=== PATIENT | male | born 1960 | race Caucasian/White ===

== ENCOUNTER 2018-07-18 12:44 | Emergency (ER) | payer BC, OTHER ==
[~2018-07-18 12:44] MED LIST: ISOVUE-370 76%-LOCM 1 ML ONE
[2018-07-18 13:11] LABS: #Eosinphils 0.1 thou/uL (0.0-0.7); #Monocytes 0.5 thou/uL (0.11-0.59); #Neutrophils 4.4 thou/uL (1.40-6.50); %Basophils 0.4 % (0.0-1.0); %Eosinophils 1.9 % (0.0-10.0); %Lymphocytes 28.5 % (21.0-51.0); %Monocytes 7.1 % (0.0-10.0); %Neutrophils 62.2 % (42.0-75.0); Hemoglobin 16.3 g/dL (14.0-18.0); Mean Corpuscular HGB CONC 33.8 g/dL (32.0-36.0); Mean Corpuscular Hemoglobin 32.4 pg (27.0-31.0); Mean Corpuscular Volume 95.9 fL (78.0-98.0); Mean Platelet Volume 7.1 fL (7.4-10.4); Platelet Count 199 thou/uL (130-400); RBC Distribution Width 12.2 % (11.5-14.5); Red Blood Cell (RBC) Count 5.01 mill/uL (4.70-6.10); White Blood Cell (WBC) Count 7.1 thou/uL (4.8-10.8)
[2018-07-18 13:22] LABS: PTT 27.5 SEC (22.9-36.1)
[2018-07-18 13:24] LABS: INR-International Normal Ratio 0.9; Prothrombin Time 11.7 SEC (12.0-14.7)
[2018-07-18 13:26] LABS: ALT (SGPT) 21 U/L (8-55); AST (SGOT) 28 U/L (5-34); Albumin 4.8 g/dL (3.5-5.0); Alkaline Phosphatase 63 U/L (40-150); Anion Gap 12 mmol/L (10-20); BUN (Urea Nitrogen) 14 mg/dL (8.4-25.7); Bilirubin, Total 0.7 mg/dL (0.2-1.2); Calc. Creatinine Clearance 0 mL/min (70-130); Calcium 9.9 mg/dL (7.8-10.44); Carbon Dioxide 23 mmol/L (22-29); Chloride 106 mmol/L (98-107); Estimated GFR-MDRD 65; Globulin 2.9 g/dL (2.4-3.5); Glucose 183 mg/dL (70-105); Potassium 4.2 mmol/L (3.5-5.1); Protein, Total 7.7 g/dL (6.0-8.3); Sodium 137 mmol/L (136-145)
[2018-07-18 13:30] LABS: CKMB 2.4 ng/mL (0-6.6); Troponin I Less than 0.010 ng/mL (< 0.028)
[2018-07-18] MEDS ORDERED: Ketorolac Tromethamine 30 MG/ML VIAL ONE (14:05)
[2018-07-18] MEDS ORDERED: Acetaminophen 500 MG TAB ONE (14:05)
--- NOTE | 2018-07-18 14:36 | CT ---
CT OF THE BRAIN WITHOUT CONTRAST: Date: 07/18/18 INDICATION: Level II stroke with headache, blurry vision, and numbness to left side of face and left arm. COMPARISON: None. FINDINGS: Septum pellucidum and third ventricle are midline. There is subtle hypodensity within the periventric ular and subcortical white matter likely indicative of mild chronic small vessel white matter ischemi c change. No definite acute infarct, hemorrhage, or hydrocephalus is present. Mastoid air cells and p aranasal sinuses are clear. Skull is intact. IMPRESSION: 1. No acute intracranial abnormality. 2. Mild chronic small vessel white matter ischemic change. Findings called to Dr. Macdonald at 1307 hours on 07/18/18. CODE CR. POS: [facility]
--- NOTE | 2018-07-18 15:10 | CT ---
CT ANGIOGRAM OF THE HEAD WITH CONTRAST CT ANGIOGRAM OF THE NECK WITH CONTRAST: Date: 07/18/18 Time: 1314 hours HISTORY: 57-year-old male with acute stroke symptoms: hypesthesia (numbness) of left face and left arm, blurr y vision, and headache. Dr. Mendosa verbally gave this report to Dr. Macdonald at 1343 hours on 07/18/18. TECHNIQUE: IV injection of 100 mL [id number]. Arterial bolus chasing technique scan from aortopulmonic window to vertex of head. Coronal and sagittal 3D MIP reconstructions. FINDINGS: A1 and A2 segments of bilateral anterior cerebral arteries, M1 segments and their proximal branches o f the bilateral middle cerebral arteries, bilateral carotid siphons, bilateral intracranial vertebral s, basilar, P1 and P2 segments of bilateral posterior cerebral arteries, demonstrate no high grade fo roel, short segment acquired stenosis. There is a patent anterior communicating artery and a left post erior communicating artery. The left posterior cerebral artery P1 segment is hypoplastic, development ally. There is contrast opacification of the bilateral AICA's and bilateral PICA's. Bilateral cervical internal carotids, bilateral common carotids, brachiocephalic, right subclavian, a nd bilateral cervical vertebral, arteries, demonstrate no short segment focal acquired stenosis. Left vertebral artery is dominant. Minimal calcified plaque at right carotid bulb. Little or no plaque at left carotid bulb. Mid and distal portions of left subclavian artery are obscured by streak artifact from contrast bolus in the adjacent left subclavian vein. Proximal left subclavian artery is within normal limits in caliber. There are anterior metallic plate and crews, and interbody cage, at C5-6. IMPRESSION: 1. No high grade acquired stenosis of major arteries of head and neck identified. 2. Status post anterior cervical diskectomy and fusion at C5-6. CODE CR. POS: [facility]
== END 2018-07-18 15:07 | disposition home or self-care (01) ==
LOC: ERS 12:44
DX: G43.809 Other migraine, not intractable, without status migrainosus (principal); E11.9 Type 2 diabetes mellitus without complications
CPT/HCPCS: 36415; 36416; 70450; 70496; 70498; 80053; 82553; 84484; 85025; 85610; 85730; 86850; 86900; 86901; 93005; 96374; J1885

== ENCOUNTER 2020-10-03 09:16 | Inpatient (IN) | payer BC, OTHER ==
[2020-10-03 09:48] LABS: #Lymphocytes 0.6 thou/uL (1.20-3.40); #Monocytes 0.3 thou/uL (0.11-0.59); #Neutrophils 4.1 thou/uL (1.40-6.50); %Basophils 0.4 % (0.0-1.0); %Eosinophils 0.3 % (0.0-10.0); %Lymphocytes 11.6 % (21.0-51.0); %Monocytes 5.8 % (0.0-10.0); %Neutrophils 81.9 % (42.0-75.0); Hemoglobin 16.9 g/dL (14.0-18.0); Mean Corpuscular HGB CONC 33.6 g/dL (32.0-36.0); Mean Corpuscular Hemoglobin 33.2 pg (27.0-31.0); Mean Corpuscular Volume 98.7 fL (78.0-98.0); Platelet Count 206 thou/uL (130-400); Red Blood Cell (RBC) Count 5.09 mill/uL (4.70-6.10)
[2020-10-03 10:10] LABS: ALT (SGPT) 12 U/L (8-55); AST (SGOT) 44 U/L (5-34); Albumin 4.1 g/dL (3.5-5.0); Alkaline Phosphatase 61 U/L (40-110); Anion Gap 19 mmol/L (10-20); BUN (Urea Nitrogen) 12 mg/dL (8.4-25.7); Bilirubin, Total 0.6 mg/dL (0.2-1.2); Calc. Creatinine Clearance 0 mL/min (70-130); Calcium 8.7 mg/dL (7.8-10.44); Carbon Dioxide 21 mmol/L (22-29); Chloride 102 mmol/L (98-107); Globulin 4.1 g/dL (2.4-3.5); Glucose 40 mg/dL (70-105); Potassium 4.7 mmol/L (3.5-5.1); Protein, Total 8.2 g/dL (6.0-8.3); Sodium 137 mmol/L (136-145)
[2020-10-03] MEDS ORDERED: Cefepime 2 GM VIAL ONE (10:28)
[2020-10-03] MEDS ORDERED: Iopamidol 370 76% 100 ML VIAL ONE (11:21)
--- NOTE | 2020-10-03 11:32 | CT ---
CTA Angio Chest W WO Con 10/03/2020 11:12 AM Indication: Dyspnea with cough myalgias and headache; history of negative Covid testing Technique: Multiple CTA images were obtained of the thorax with IV contrast. 3-D rendering: MIP jatin nstructed images were created and reviewed. Comparison: No relevant prior studies available. Findings: Pulmonary arteries: No central or segmental pulmonary embolus is evident. Heart and Aorta: There is mild cardiomegaly and mild pericardial effusion. Mediastinum:There is a 1.3 cm prevascular lymph node. There is a subcarinal lymph node measuring 2.1 cm. There are mildly prominent bilateral hilar lymph nodes. One of the largest measures 1 cm. Lungs:There is airspace consolidation seen within all lobes of the lung. Pleural space: There are small bilateral pleural effusions Upper Abdomen: There is a 1.8 cm cyst within the right hepatic dome. Osseous Structures: There is scattered degenerative and osteoarthritic change present. Soft tissues:No abnormality. Other findings:None. Impression: 1. No central or segmental pulmonary embolus. 2. Multifocal pneumonia. Mildly prominent hilar and mediastinal lymph nodes are suspicious for reacti ve lymphadenopathy. 3. Mild cardiomegaly with mild pericardial effusion and mild bilateral pleural effusions. Recommend c orrelation for component of CHF. 4. Right hepatic dome cyst.
[2020-10-03 11:53] LABS: SARS-CoV-2 NAA Rapid Test Not Detected (NotDetected)
[2020-10-03] MEDS ORDERED: Acetaminophen 500 MG TAB ONE (13:48)
[2020-10-03] MEDS ORDERED: Dextrose 5% in Water 1,000 ML IV PRN (15:27)
[2020-10-03] MEDS ORDERED: Ondansetron PF 4 MG/2 ML Vial IVP PRN (15:27)
[2020-10-03] MEDS ORDERED: Guaifenesin DM 100-10/5 ML UDCUP PO PRN (15:27)
[2020-10-03] MEDS ORDERED: Ondansetron ODT 4 MG TAB PO PRN (15:27)
[2020-10-03] MEDS ORDERED: hydrALAZINE 20 MG/ML VIAL SLOW IVP PRN (15:27)
[2020-10-03] MEDS ORDERED: Dextrose 50% Abboject 50 ML SYRINGE SLOW IVP PRN (15:27)
[2020-10-03] MEDS ORDERED: Sodium Chloride 0.9% 1,000 ML IV SCH (15:27)
[2020-10-03] MEDS ORDERED: Ketorolac Tromethamine 30 MG/ML VIAL IVP SCH (15:30)
[2020-10-03 15:34] VITALS: BMI 33.7
[2020-10-03] MEDS ORDERED: Dextrose 50% Abboject 50 ML SYRINGE ONE (15:47)
--- NOTE | 2020-10-03 17:05 | HP ---
PRIMARY CARE PROVIDER: Adam Marshall MD CHIEF COMPLAINT: Cough, shortness of breath, and body aches. HISTORY OF PRESENT ILLNESS: This is a 59-year-old male, who presents to [facility] Emergency Department complaining of approximately 13-day history of undulating shortness of breath, cough, myalgias, fever, and headache. The patient apparently was placed on Zithromax and amoxicillin by his primary care provider, continuing the antibiotics currently with progression of his symptoms. The patient apparently presented to his primary care provider's office in followup and noted to be hypoxic approximately 89% on room air. The patient states he was tested for COVID x2 and negative. The patient denied any exposure history of travel. Family members with similar symptoms of chronic pneumonia or history of lung disease. The patient denies tobacco use or chemical exposure. The patient does admit to fever up to 102 degrees Fahrenheit with associated cough, shortness of breath, diarrhea, and headache. In the emergency room, the patient underwent general evaluation including chest imaging showing multifocal pneumonia suspicious for COVID-19. The patient underwent a COVID screening in the emergency room and noted to be negative. The patient received vancomycin, Levaquin, and cefepime in the emergency room in addition to intravenous normal saline x1 L. The patient was also placed on oxygen supplementation of 2 L/minute by nasal cannula with O2 saturations in the mid 90% range. PAST MEDICAL HISTORY: 1. Diabetes mellitus, type 2. 2. Migraine headaches. 3. Hyperlipidemia. PAST SURGICAL HISTORY: Status post back surgery. CURRENT MEDICATIONS: 1. Metformin 1000 mg p.o. b.i.d. 2. Simvastatin 5 mg p.o. daily. 3. Lantus U-100 of 50 units subcutaneously b.i.d. ALLERGIES: NO KNOWN DRUG ALLERGIES. FAMILY HISTORY: Positive for diabetes mellitus. SOCIAL HISTORY: Resides in [place], [place]. . Works for [employer]. No alcohol, tobacco, or illicit drug use. REVIEW OF SYSTEMS: CONSTITUTIONAL: Negative for weight loss or gain, ability to conduct usual activities. SKIN: Negative for rash, itching. EYES: Negative for double vision, pain. ENT/MOUTH: Negative for nose bleeding, neck stiffness, pain, tenderness. CARDIOVASCULAR: Negative for palpitations, dyspnea on exertion, orthopnea. RESPIRATORY: Negative for shortness of breath, wheezing, cough, hemoptysis, fever or night sweats. GASTROINTESTINAL: Negative for poor appetite, abdominal pain, heartburn, nausea, vomiting, constipation, or diarrhea. GENITOURINARY: Negative for urgency, frequency, dysuria, nocturia. MUSCULOSKELETAL: Negative for pain, swelling. NEUROLOGIC/PSYCHIATRIC: Negative for anxiety, depression. ALLERGY/IMMUNOLOGIC: Negative for skin rash, bleeding tendency. Otherwise negative except as stated per HPI. PHYSICAL EXAMINATION: VITAL SIGNS: On admission, blood pressure 163/102, pulse 105, respiratory rate 16, temperature 102.3 degrees Fahrenheit, and O2 saturation 94% on 2 L/minute by nasal cannula. GENERAL APPEARANCE: This is a 59-year-old male, alert and oriented x3, pleasant, responsive, in [id number] distress. HEENT: Pupils are equal, round, and reactive to light and accommodation. Extraocular muscles are intact. No scleral icterus. No conjunctival injection. Nares are patent. OP is clear. Oral mucosa dry. NECK: Supple. No cervical adenopathy. No thyromegaly. No carotid bruits. No JVD appreciated. Cervical spine with full active and passive range of motion. No meningeal signs noted. CHEST: Diminished breath sounds in the bases bilaterally with occasional scattered rhonchi. Positive tachypnea. CARDIOVASCULAR: S1 and S2 without noted murmur, rub, or gallop. Positive tachycardia. ABDOMEN: Rounded, soft, nontender, and nondistended. Bowel sounds are positive in all 4 quadrants. There is no hepatosplenomegaly. No abdominal bruits. No rebound or guarding appreciated. EXTREMITIES: Warm and dry with fair turgor. No clubbing, cyanosis, or asymmetric edema appreciated. Pulses palpable distally at the dorsalis pedis, posterior tibial, and popliteal arteries bilaterally. Capillary refill less than 2 seconds. NEUROLOGIC: Cranial nerves II through XII are grossly intact. No focal or lateralizing signs appreciated. PERTINENT LABORATORY AND X-RAY FINDINGS: Sodium 137, potassium 4.7, chloride 102, CO2 of 21, BUN 12, creatinine 1.20, estimated GFR 62, and glucose 40. Lactic acid level 0.9. Calcium 8.7. AST 44, ALT of 12, alkaline phosphatase 61. Troponin I negative x1. BNP less than 10. CBC showed a white blood cell count of 5.0, hemoglobin 16.9, hematocrit 50, MCV 99, and platelet count 206 with 82% neutrophils. COVID-19 PCR not detected on 10/03/2020. Influenza A and B antigen negative on 10/03/2020. CT angiogram of the chest dated 10/03/2020, showed multifocal pneumonia with associated mediastinal lymphadenopathy. EKG dated 10/03/2020, by my interpretation shows sinus tachycardia with heart rates in the low 100s. Left axis deviation. Voltage criteria consistent with left ventricular hypertrophy. No acute ST-T wave changes appreciated. ASSESSMENT AND PLAN: 1. Sepsis secondarily to multifocal pneumonia. The patient will be admitted to the medical floor. We will continue broad-spectrum IV antibiotic coverage with cefepime 2 g IV q.8 hours with Levaquin 750 mg IV daily. Continue DuoNeb q.4 hours p.r.n. Continue intravenous normal saline at 100 mL/h. Serial lactate per protocol. Blood cultures pending x2. 2. Acute hypoxic respiratory failure secondarily to pneumonia. Continue oxygen supplementation to maintain O2 saturations greater than or equal to 90%. Continue titrating oxygen therapy based on clinical response. 3. Hypoglycemia. Suspect secondarily to sepsis. Start D5 NS at 100 mL/h. Serial Accu-Cheks. Hold insulin. 4. Hypertension. Confirm home blood pressure regimen and initiate with p.r.n. hydralazine. Serial blood pressure monitoring. 5. Diabetes mellitus, type 2. Hold insulin therapy. Insulin sliding scale. ADA diet when tolerating p.o. intake. 6. Prophylaxis. SCDs while in bed. Pepcid 20 mg p.o. b.i.d. 7. Code status: Full. Surrogate medical decision maker is the patient's spouse. Job ID: [id number]
[2020-10-03] MEDS: Cefepime 2 GM in Sodium Chloride 0.9% 100 ML IVPB SCH (18:25)
[2020-10-03] MEDS: Ketorolac Tromethamine 30 MG/ML VIAL IVP SCH ×2 (18:27→23:39)
[2020-10-03] MEDS: Dextrose 5 % And 0.9 % NaCl 1,000 ML IV SCH (18:30)
[2020-10-03] MEDS: Famotidine 20 MG TAB PO SCH (20:39)
[2020-10-03] MEDS: Acetaminophen 500 MG TAB PO PRN (21:47)
[2020-10-04] MEDS: Dextrose 5 % And 0.9 % NaCl 1,000 ML IV SCH ×2 (02:40→14:25)
[2020-10-04] MEDS: Cefepime 2 GM in Sodium Chloride 0.9% 100 ML IVPB SCH ×3 (02:41→17:01)
[2020-10-04] MEDS: Acetaminophen 500 MG TAB PO PRN ×3 (04:34→17:00)
[2020-10-04] MEDS: Ketorolac Tromethamine 30 MG/ML VIAL IVP SCH ×2 (05:05→11:05)
[2020-10-04 05:39] LABS: #Lymphocytes 0.9 thou/uL (1.20-3.40); #Monocytes 0.4 thou/uL (0.11-0.59); #Neutrophils 6.7 thou/uL (1.40-6.50); %Basophils 0.4 % (0.0-1.0); %Eosinophils 0.2 % (0.0-10.0); %Lymphocytes 11.6 % (21.0-51.0); %Monocytes 4.9 % (0.0-10.0); %Neutrophils 82.9 % (42.0-75.0); Hemoglobin 15.2 g/dL (14.0-18.0); Mean Corpuscular HGB CONC 34.3 g/dL (32.0-36.0); Mean Corpuscular Volume 96.3 fL (78.0-98.0); Mean Platelet Volume 6.9 fL (7.4-10.4); Platelet Count 211 thou/uL (130-400); Red Blood Cell (RBC) Count 4.59 mill/uL (4.70-6.10); White Blood Cell (WBC) Count 8.1 thou/uL (4.8-10.8)
[2020-10-04 06:07] LABS: ALT (SGPT) 10 U/L (8-55); AST (SGOT) 27 U/L (5-34); Albumin 3.5 g/dL (3.5-5.0); Alkaline Phosphatase 50 U/L (40-110); Anion Gap 13 mmol/L (10-20); BUN (Urea Nitrogen) 15 mg/dL (8.4-25.7); Bilirubin, Total 0.4 mg/dL (0.2-1.2); Calc. Creatinine Clearance 136 mL/min (70-130); Calcium 7.5 mg/dL (7.8-10.44); Carbon Dioxide 21 mmol/L (22-29); Chloride 107 mmol/L (98-107); Globulin 2.9 g/dL (2.4-3.5); Glucose 102 mg/dL (70-105); Potassium 3.8 mmol/L (3.5-5.1); Protein, Total 6.4 g/dL (6.0-8.3); Sodium 137 mmol/L (136-145)
[2020-10-04] MEDS: Famotidine 20 MG TAB PO SCH ×2 (09:09→20:57)
[2020-10-04] MEDS: Morphine 4 MG/ML VIAL SLOW IVP PRN ×3 (12:27→21:18)
--- NOTE | 2020-10-04 13:49 | PDOC.HOSPP ---
- Subjective Encounter Date: 10/04/20 Subjective: The patient was experiencing worsening shortness of breath and hypoxia this afternoon. He is also complaining of back pain. - Objective Vital Signs & Weight: Vital Signs (12 hours) Temp Pulse Resp BP Pulse Ox 10/04/20 13:22 98 18 96 10/04/20 12:42 97.9 F 10/04/20 11:17 99.5 F 101 H 20 163/90 H 91 L 10/04/20 11:13 99.5 F 10/04/20 11:12 99.5 F 10/04/20 09:10 94 L 10/04/20 07:55 97.3 F L 74 17 161/85 H 94 L 10/04/20 07:36 87 18 95 10/04/20 04:00 99.0 F 96 18 162/82 H 90 L Weight Weight 249 lb I&O: 10/03/20 10/04/20 10/05/20 06:59 06:59 06:59 Intake Total 2474 Output Total 890 Balance 1584 Result Diagrams: 10/04/20 05:28 10/04/20 05:28 Additional Labs: Accuchecks 10/04/20 10/04/20 10/03/20 10:20 05:09 20:58 POC Glucose 158 H 97 89 10/03/20 10/03/20 17:45 15:47 POC Glucose 102 H 31 L* Hospitalist ROS - Medication Medications: Active Medications Generic Name Dose Route Start Last Admin Trade Name Freq PRN Reason Stop Dose Admin Acetaminophen 1,000 mg 10/03/20 15:27 10/04/20 11:12 Acetaminophen 500 Mg Tab PO 1,000 mg Q6H PRN Administration Mild Pain (1-3) Albuterol/Ipratropium 3 ml 10/03/20 15:27 10/04/20 13:22 Ipratropium/Albuterol Sulfate 3 Ml Neb NEB 3 ml [id number] MELISSA Administration Famotidine 20 mg 10/03/20 21:00 10/04/20 09:09 Famotidine 20 Mg Tab PO 20 mg BID MELISSA Administration Guaifenesin/Dextromethorphan 15 ml 10/03/20 15:27 10/03/20 23:43 Guaifenesin Dm 100-10/5 Ml Udcup PO 15 ml Q4H PRN Administration Cough Cefepime HCl 2 gm/ Sodium 100 mls @ 200 mls/hr 10/03/20 18:00 10/04/20 09:09 Chloride IVPB 100 mls 0200,1000,1800 MELISSA Administration Levofloxacin 750 mg/ Device 150 mls @ 100 mls/hr 10/04/20 11:00 10/04/20 11:04 IVPB 150 mls 1100 MELISSA Administration Dextrose/Sodium Chloride 1,000 mls @ 100 mls/hr 10/03/20 18:15 10/04/20 02:40 D5 0.9% Ns IV 1,000 mls .Q10H MELISSA Administration Morphine Sulfate 4 mg 10/04/20 11:27 10/04/20 12:27 Morphine 4 Mg/Ml Vial SLOW IVP 4 mg Q4H PRN Administration Pain - Exam General Appearance: awake alert Neck: supple Heart: RRR Respiratory: normal chest expansion, no tachypnea, rhonchi Neurological: cranial nerve grossly intact, no weakness Hosp A/P (1) Acute respiratory failure with hypoxia Code(s): J96.01 - ACUTE RESPIRATORY FAILURE WITH HYPOXIA Status: Acute (2) Multifocal pneumonia Code(s): J18.9 - PNEUMONIA, UNSPECIFIED ORGANISM Status: Acute (3) Chronic back pain Code(s): M54.9 - DORSALGIA, UNSPECIFIED; G89.29 - OTHER CHRONIC PAIN Status: Acute (4) Sepsis Code(s): A41.9 - SEPSIS, UNSPECIFIED ORGANISM Status: Acute (5) DM2 (diabetes mellitus, type 2) Status: Acute (6) Hypertension Code(s): I10 - ESSENTIAL (PRIMARY) HYPERTENSION Status: Acute - Plan The patient is hypoxia appears to be worsening. He is currently on antibiotic coverage for community-acquired pneumonia in addition to Pseudomonas aeruginosa. Start high flow nasal cannula to achieve O2 saturation equal or greater to 95%. We will provide a chair with a recliner so the patient can sit down and avoid worsening low back pain. Follow culture results. COVID-19 test is negative.
[2020-10-04] MEDS: HumaLOG 300 UNITS/3 ML VIAL SC PRN (17:07)
[2020-10-04] MEDS ORDERED: Sodium Chloride 0.9% 500 ML IV SCH ×2 (18:45→19:00)
[2020-10-04] MEDS: Acetaminophen 325 MG TAB PO PRN (20:56)
[2020-10-05] MEDS: Dextrose 5 % And 0.9 % NaCl 1,000 ML IV SCH ×3 (01:31→15:25)
[2020-10-05] MEDS: Cefepime 2 GM in Sodium Chloride 0.9% 100 ML IVPB SCH ×3 (01:35→17:16)
[2020-10-05] MEDS: Acetaminophen 325 MG TAB PO PRN ×3 (01:59→13:12)
[2020-10-05] MEDS: Morphine 4 MG/ML VIAL SLOW IVP PRN (05:55)
[2020-10-05] MEDS: Famotidine 20 MG TAB PO SCH ×2 (07:49→22:15)
[2020-10-05] MEDS ORDERED: Bumetanide 1 MG/4 ML VIAL IVP SCH (09:30)
[2020-10-05] MEDS ORDERED: Enoxaparin Sodium 40 MG/0.4 ML SYRINGE SC SCH (09:30)
[2020-10-05] MEDS: Dexamethasone 4 mg/ml Vial SLOW IVP SCH (10:00)
--- NOTE | 2020-10-05 10:28 | RAD ---
XR Chest 1 View History: Volume overload Comparison: CT 2 days prior Findings: Multifocal pneumonia. Trace effusions. Heart size is enlarged. No pneumothorax. Impression: Slightly progressed multifocal pneumonia.
--- NOTE | 2020-10-05 12:57 | PDOC.HOSPP ---
- Subjective Encounter Date: 10/05/20 Subjective: The patient's oxygenation has worsened since yesterday. He is still having persistent fevers and generalized body pains. - Objective Vital Signs & Weight: Vital Signs (12 hours) Temp Pulse Resp BP Pulse Ox 10/05/20 12:00 101.5 F H 97 18 154/78 H 93 L 10/05/20 08:35 110 H 30 H 10/05/20 08:33 91 L 10/05/20 08:00 93 L 10/05/20 07:53 101.4 F H 106 H 21 H 169/79 H 93 L 10/05/20 04:38 167/75 H 10/05/20 04:33 98.4 F 20 93 L Weight Weight 249 lb I&O: 10/04/20 10/05/20 10/06/20 06:59 06:59 06:59 Intake Total 2474 3880 Output Total 890 1300 Balance 1584 2580 Result Diagrams: 10/06/20 09:52 10/06/20 09:52 Additional Labs: Accuchecks 10/05/20 10/04/20 10/04/20 06:02 20:45 16:49 POC Glucose 131 H 144 H 200 H Hospitalist ROS - Medication Medications: Active Medications Generic Name Dose Route Start Last Admin Trade Name Freq PRN Reason Stop Dose Admin Acetaminophen 650 mg 10/04/20 18:45 10/05/20 07:49 Acetaminophen 325 Mg Tab PO 650 mg Q6H PRN Administration Headache/Fever or Pain Dexamethasone 6 mg 10/05/20 09:00 10/05/20 10:00 Dexamethasone 4 Mg/Ml Vial SLOW IVP 6 mg DAILY MELISSA Administration Famotidine 20 mg 10/03/20 21:00 10/05/20 07:49 Famotidine 20 Mg Tab PO 20 mg BID MELISSA Administration Guaifenesin/Dextromethorphan 15 ml 10/03/20 15:27 10/03/20 23:43 Guaifenesin Dm 100-10/5 Ml Udcup PO 15 ml Q4H PRN Administration Cough Cefepime HCl 2 gm/ Sodium 100 mls @ 200 mls/hr 10/03/20 18:00 10/05/20 10:11 Chloride IVPB 100 mls 0200,1000,1800 MELISSA Administration Levofloxacin 750 mg/ Device 150 mls @ 100 mls/hr 10/04/20 11:00 10/04/20 11:04 IVPB 150 mls 1100 MELISSA Administration Dextrose/Sodium Chloride 1,000 mls @ 100 mls/hr 10/03/20 18:15 10/05/20 04:29 D5 0.9% Ns IV 1,000 mls .Q10H MELISSA Administration Vancomycin HCl 2 gm/ Sodium 500 mls @ 250 mls/hr 10/04/20 20:00 10/05/20 10: 05 Chloride IVPB 500 mls 0800,2000 MELISSA Administration Insulin Human Lispro 0 units 10/03/20 15:27 10/04/20 17:07 Humalog 300 Units/3 Ml Vial SC 2 unit .MILD SLIDING SCALE PRN Administration Mild Correctional Scale Morphine Sulfate 4 mg 10/04/20 11:27 10/05/20 05:55 Morphine 4 Mg/Ml Vial SLOW IVP 4 mg Q4H PRN Administration Moderate to Severe Pain (6-10) - Exam General Appearance: awake alert ENT: normocephalic atraumatic Neck: supple, no JVD Heart: RRR Respiratory: normal chest expansion, no tachypnea, rhonchi Gastrointestinal: soft Neurological: cranial nerve grossly intact, no weakness Hosp A/P (1) Acute respiratory failure with hypoxia Code(s): J96.01 - ACUTE RESPIRATORY FAILURE WITH HYPOXIA Status: Acute (2) Multifocal pneumonia Code(s): J18.9 - PNEUMONIA, UNSPECIFIED ORGANISM Status: Acute (3) Chronic back pain Code(s): M54.9 - DORSALGIA, UNSPECIFIED; G89.29 - OTHER CHRONIC PAIN Status: Acute (4) Sepsis Code(s): A41.9 - SEPSIS, UNSPECIFIED ORGANISM Status: Acute (5) DM2 (diabetes mellitus, type 2) Status: Acute (6) Hypertension Code(s): I10 - ESSENTIAL (PRIMARY) HYPERTENSION Status: Acute - Plan The patient is currently on high flow nasal cannula 60% FiO2. He is currently on antibiotic coverage for community-acquired pneumonia in addition to Pseudomonas aeruginosa. His symptoms in addition to persistent fevers and the appearance of the multifocal infiltrates on x-ray is suggestive of COVID-19. His PCR test is negative that this could be a false result. I will check COVID-19 antibody test and start the patient on dexamethasone and enoxaparin. COVID-19 isolation will be placed.
[2020-10-05] MEDS: Albuterol 200 PUFF (6.7GM INHALER) INH SCH ×2 (15:22→18:10)
[2020-10-05 16:32] LABS: SARS-CoV-2 IgG Ab Non-Reactive (NonReactive); SARS-CoV-2 IgG Index 1.29 S/CO (< 1.40)
[2020-10-05] MEDS: HumaLOG 300 UNITS/3 ML VIAL SC PRN (18:10)
[2020-10-05] MEDS: Enoxaparin Sodium 40 MG/0.4 ML SYRINGE SC SCH (22:16)
[2020-10-06] MEDS: Bumetanide 1 MG/4 ML VIAL IVP SCH ×3 (00:26→20:16)
[2020-10-06] MEDS: Cefepime 2 GM in Sodium Chloride 0.9% 100 ML IVPB SCH ×3 (03:13→17:38)
[2020-10-06 07:09] LABS: Vancomycin, Trough 23.1 ug/mL
[2020-10-06] MEDS: Dextrose 5 % And 0.9 % NaCl 1,000 ML IV SCH ×3 (08:21→10:10)
[2020-10-06] MEDS: Dexamethasone 4 mg/ml Vial SLOW IVP SCH (08:23)
[2020-10-06] MEDS: Enoxaparin Sodium 40 MG/0.4 ML SYRINGE SC SCH ×2 (08:26→20:17)
[2020-10-06] MEDS: Famotidine 20 MG TAB PO SCH ×2 (08:26→20:16)
[2020-10-06] MEDS: Albuterol 200 PUFF (6.7GM INHALER) INH SCH ×4 (08:28→18:39)
[2020-10-06 10:01] LABS: #Lymphocytes 0.7 thou/uL (1.20-3.40); #Monocytes 0.6 thou/uL (0.11-0.59); #Neutrophils 11.7 thou/uL (1.40-6.50); %Basophils 0.1 % (0.0-1.0); %Eosinophils 0.1 % (0.0-10.0); %Lymphocytes 5.4 % (21.0-51.0); %Monocytes 4.4 % (0.0-10.0); %Neutrophils 90.1 % (42.0-75.0); Hemoglobin 14.6 g/dL (14.0-18.0); Mean Corpuscular HGB CONC 34.5 g/dL (32.0-36.0); Mean Corpuscular Hemoglobin 33.2 pg (27.0-31.0); Mean Corpuscular Volume 96.4 fL (78.0-98.0); Platelet Count 291 thou/uL (130-400); RBC Distribution Width 13.2 % (11.5-14.5); Red Blood Cell (RBC) Count 4.38 mill/uL (4.70-6.10)
[2020-10-06 10:19] LABS: Anion Gap 16 mmol/L (10-20); BUN (Urea Nitrogen) 19 mg/dL (8.4-25.7); Calc. Creatinine Clearance 96 mL/min (70-130); Calcium 7.3 mg/dL (7.8-10.44); Carbon Dioxide 21 mmol/L (22-29); Chloride 105 mmol/L (98-107); Glucose 229 mg/dL (70-105); Sodium 138 mmol/L (136-145)
--- NOTE | 2020-10-06 11:16 | CON ---
DATE OF CONSULTATION: 10/06/2020 REASON FOR CONSULTATION: Pulmonary infiltrates and pneumonia. HISTORY OF PRESENT ILLNESS: This is a 59-year-old male, who presented to the hospital on 10/03 and was admitted to the [facility]. His presenting complaint was a 2-week history of cough, shortness of breath, intermittent fever, and headache. He had been seen at the [facility] ER and also by his [facility] physician. He had 3 negative COVID test before presentation to the hospital. Here, he has had another negative COVID test and a negative COVID antibody. He has been transferred in multiple rooms in the hospital. Yesterday, he received a dose of diuretics and began to feel better. His presenting x-ray showed bilateral pulmonary infiltrates in a pattern that is similar to the patient's with Coban, so he was assumed to have COVID and he has been treated as such. PAST MEDICAL HISTORY: 1. Diabetes mellitus. 2. Hyperlipidemia. 3. Migraine headaches. PAST SURGICAL HISTORY: Back surgery. MEDICATIONS: 1. Lantus insulin. 2. Simvastatin. 3. Metformin. ALLERGIES: NONE. FAMILY MEDICAL HISTORY: Remarkable for diabetes mellitus. SOCIAL HISTORY: He works for [employer]. Does not smoke. Does not drink alcohol. Does not use illicit drugs. REVIEW OF SYSTEMS: Remarkable for cough, shortness of breath, and intermittent fever. Otherwise, negative. PHYSICAL EXAMINATION: VITAL SIGNS: Temperature 99.3, pulse 93, blood pressure 131/100, and O2 saturation 92%. GENERAL: He is awake and alert and in no acute distress. HEENT: Unremarkable. NECK: No adenopathy or JVD. LUNGS: Show inspiratory crackles at the bases. CARDIAC: S1 and S2. Regular. ABDOMEN: Soft and nontender. EXTREMITIES: No clubbing, cyanosis, or edema. LABORATORY DATA: Sodium 138, potassium 4, chloride 105, CO2 of 21, BUN 19, creatinine 1.4, and glucose 229. White blood cell count 13, hematocrit 42.2, and platelet count 291. I reviewed the CT and his chest x-ray. ASSESSMENT: 1. Pneumonitis versus pulmonary edema. 2. Multiple negative COVID tests and negative COVID antibody suggesting this was not a COVID infection. RECOMMENDATIONS: 1. Respiratory isolation can be discontinued. 2. Continue steroids. 3. We would stop IV fluids. 4. Diuretics. 5. Anticoagulation. 6. Review echocardiogram. Job ID: [id number]
[2020-10-06] MEDS: HumaLOG 300 UNITS/3 ML VIAL SC PRN ×3 (11:47→21:24)
--- NOTE | 2020-10-06 12:07 | RAD ---
PORTABLE CHEST: HISTORY: Followup of pneumonia. FINDINGS: The bilateral lung infiltrates are stable as compared to the prior exam. Heart size is enlarged. IMPRESSION: Stable bilateral multifocal infiltrates. POS: [facility]
[2020-10-06] MEDS ORDERED: Losartan 25 MG TAB PO SCH (12:30)
--- NOTE | 2020-10-06 18:52 | PDOC.HOSPP ---
- Subjective Encounter Date: 10/06/20 Subjective: The patient's respiratory status improved significantly since yesterday. - Objective Vital Signs & Weight: Vital Signs (12 hours) Temp Pulse Resp BP Pulse Ox 10/06/20 17:10 97.7 F 80 20 159/94 H 94 L 10/06/20 16:30 97.6 F 10/06/20 11:57 98.6 F 10/06/20 08:26 98.6 F Weight Weight 249 lb Most Recent Monitor Data Heart Rate from ECG 87 NIBP 137/85 NIBP BP-Mean 102 Respiration from ECG 20 SpO2 94 I&O: 10/05/20 10/06/20 10/07/20 06:59 06:59 06:59 Intake Total 3880 2550 Output Total 1300 3900 Balance 2580 -1350 Result Diagrams: 10/06/20 09:52 10/06/20 09:52 Additional Labs: Accuchecks 10/06/20 10/06/20 10/06/20 16:17 11:36 05:39 POC Glucose 217 H 217 H 207 H 10/05/20 20:17 POC Glucose 247 H Hospitalist ROS - Medication Medications: Active Medications Generic Name Dose Route Start Last Admin Trade Name Freq PRN Reason Stop Dose Admin Acetaminophen 650 mg 10/04/20 18:45 10/05/20 13:12 Acetaminophen 325 Mg Tab PO 650 mg Q6H PRN Administration Headache/Fever or Pain Albuterol Sulfate 2 puff 10/05/20 15:00 10/06/20 18:39 Albuterol 200 Puff (6.7gm Inhaler) INH 2 puff [id number] MELISSA Administration Bumetanide 1 mg 10/05/20 21:00 10/06/20 10:14 Bumetanide 1 Mg/4 Ml Vial IVP 1 mg BID MELISSA Administration Dexamethasone 6 mg 10/05/20 09:00 10/06/20 08:23 Dexamethasone 4 Mg/Ml Vial SLOW IVP 6 mg DAILY MELISSA Administration Enoxaparin Sodium 40 mg 10/05/20 21:00 10/06/20 08:26 Enoxaparin Sodium 40 Mg/0.4 Ml Syringe SC 40 mg 0900,2100 MELISSA Administration Famotidine 20 mg 10/03/20 21:00 10/06/20 08:26 Famotidine 20 Mg Tab PO 20 mg BID MELISSA Administration Guaifenesin/Dextromethorphan 15 ml 10/03/20 15:27 10/03/20 23:43 Guaifenesin Dm 100-10/5 Ml Udcup PO 15 ml Q4H PRN Administration Cough Cefepime HCl 2 gm/ Sodium 100 mls @ 200 mls/hr 10/03/20 18:00 10/06/20 17:38 Chloride IVPB 100 mls 0200,1000,1800 MELISSA Administration Levofloxacin 750 mg/ Device 150 mls @ 100 mls/hr 10/04/20 11:00 10/06/20 12: 31 IVPB 150 mls 1100 MELISSA Administration Vancomycin HCl 2 gm/ Sodium 500 mls @ 250 mls/hr 10/04/20 20:00 10/06/20 08:26 Chloride IVPB 500 mls 0800,2000 MELISSA Administration Insulin Human Lispro 0 units 10/03/20 15:27 10/06/20 16:20 Humalog 300 Units/3 Ml Vial SC 3 unit .MILD SLIDING SCALE PRN Administration Mild Correctional Scale Morphine Sulfate 4 mg 10/04/20 11:27 10/05/20 05:55 Morphine 4 Mg/Ml Vial SLOW IVP 4 mg Q4H PRN Administration Moderate to Severe Pain (6-10) - Exam General Appearance: awake alert ENT: normocephalic atraumatic Neck: supple, no JVD Heart: RRR Respiratory: normal chest expansion, no tachypnea, rhonchi Neurological: cranial nerve grossly intact, no focal deficits Hosp A/P (1) Acute respiratory failure with hypoxia Code(s): J96.01 - ACUTE RESPIRATORY FAILURE WITH HYPOXIA Status: Acute (2) Multifocal pneumonia Code(s): J18.9 - PNEUMONIA, UNSPECIFIED ORGANISM Status: Acute (3) Chronic back pain Code(s): M54.9 - DORSALGIA, UNSPECIFIED; G89.29 - OTHER CHRONIC PAIN Status: Acute (4) Sepsis Code(s): A41.9 - SEPSIS, UNSPECIFIED ORGANISM Status: Acute (5) DM2 (diabetes mellitus, type 2) Status: Acute (6) Hypertension Code(s): I10 - ESSENTIAL (PRIMARY) HYPERTENSION Status: Acute - Plan 10/05: The patient is currently on high flow nasal cannula 60% FiO2. He is currently on antibiotic coverage for community-acquired pneumonia in addition to Pseudomonas aeruginosa. His symptoms in addition to persistent fevers and the appearance of the multifocal infiltrates on x-ray is suggestive of COVID-19. His PCR test is negative that this could be a false result. I will check COVID-19 antibody test and start the patient on dexamethasone and enoxaparin. COVID-19 isolation will be placed. 10/06: The patient's respiratory status improved since yesterday. He has been diuresing well. Currently saturating well on 2 L nasal cannula. We will continue IV diuresis. Check echocardiogram. Continue empiric antibiotics for suspected multifocal pneumonia. COVID-19 PCR and antibody tests are negative. At this point, the likelihood of COVID-19 infection is very low. I will keep corticosteroids since it has a role in improving his severe pneumonia.
[2020-10-06] MEDS: Acetaminophen 325 MG TAB PO PRN (20:17)
[2020-10-07 02:01] LABS: #Lymphocytes 0.6 thou/uL (1.20-3.40); #Monocytes 0.7 thou/uL (0.11-0.59); #Neutrophils 7.4 thou/uL (1.40-6.50); %Eosinophils 0.1 % (0.0-10.0); %Lymphocytes 6.9 % (21.0-51.0); %Monocytes 7.7 % (0.0-10.0); %Neutrophils 85.3 % (42.0-75.0); Hemoglobin 14.1 g/dL (14.0-18.0); Mean Corpuscular HGB CONC 34.2 g/dL (32.0-36.0); Mean Corpuscular Hemoglobin 33.5 pg (27.0-31.0); Mean Corpuscular Volume 97.9 fL (78.0-98.0); Mean Platelet Volume 7.7 fL (7.4-10.4); Platelet Count 296 thou/uL (130-400); RBC Distribution Width 13.1 % (11.5-14.5); Red Blood Cell (RBC) Count 4.22 mill/uL (4.70-6.10); White Blood Cell (WBC) Count 8.7 thou/uL (4.8-10.8)
[2020-10-07 02:43] LABS: Anion Gap 16 mmol/L (10-20); BUN (Urea Nitrogen) 28 mg/dL (8.4-25.7); Calc. Creatinine Clearance 87 mL/min (70-130); Calcium 7.3 mg/dL (7.8-10.44); Carbon Dioxide 22 mmol/L (22-29); Chloride 104 mmol/L (98-107); Glucose 223 mg/dL (70-105); Potassium 4.1 mmol/L (3.5-5.1); Sodium 138 mmol/L (136-145)
[2020-10-07] MEDS ORDERED: Magnesium 2 GM/50 ML 2 GM in Premix Bag 1 BAG IVPB SCH (03:00)
[2020-10-07] MEDS: Cefepime 2 GM in Sodium Chloride 0.9% 100 ML IVPB SCH ×3 (03:23→17:49)
[2020-10-07] MEDS: HumaLOG 300 UNITS/3 ML VIAL SC PRN ×4 (06:26→22:13)
[2020-10-07] MEDS: Albuterol 200 PUFF (6.7GM INHALER) INH SCH ×4 (07:14→18:27)
[2020-10-07] MEDS: Dexamethasone 4 mg/ml Vial SLOW IVP SCH (08:52)
[2020-10-07] MEDS: Famotidine 20 MG TAB PO SCH ×2 (08:52→22:12)
[2020-10-07] MEDS: Enoxaparin Sodium 40 MG/0.4 ML SYRINGE SC SCH ×2 (08:52→22:12)
[2020-10-07] MEDS: Bumetanide 1 MG/4 ML VIAL IVP SCH (08:53)
[2020-10-07] MEDS: Losartan 25 MG TAB PO SCH (08:53)
--- NOTE | 2020-10-07 10:18 | PRG ---
DATE OF SERVICE: 10/07/2020 SUBJECTIVE: The patient is doing somewhat better. OBJECTIVE: VITAL SIGNS: O2 saturations were running in the low 90s on 4 L, blood pressure 152/85, temperature 97.6, pulse 71. HEENT: Unremarkable. NECK: No adenopathy or JVD. LUNGS: Inspiratory crackles bilaterally. CARDIAC: S1, S2. Regular. ABDOMEN: Soft. EXTREMITIES: No edema. LABORATORY DATA: White blood cell count 8.7, hematocrit 41.3, and platelet count 296. Sodium 138, potassium 4.1, chloride 104, CO2 of 22, BUN 28, creatinine 1.5, glucose 223. ASSESSMENT: 1. Atypical pneumonia with negative cultures. 2. Increasing BUN and creatinine with diuresis. PLAN: 1. Decrease diuretics to one dose daily. 2. Stop dexamethasone, trial Solu-Medrol as an alternative. 3. Start inhaled steroids. Job ID: [id number]
[2020-10-07] MEDS: methylPREDNISolone Sod Succ 40 MG VIAL IVP SCH ×2 (11:37→17:49)
--- NOTE | 2020-10-07 12:19 | PDOC.HOSPP ---
- Subjective Encounter Date: 10/07/20 Encounter Time: 12:17 Subjective: cont to improve. still has occasional sweat, coughing spells - Objective Vital Signs & Weight: Vital Signs (12 hours) Temp Pulse Resp BP Pulse Ox 10/07/20 07:12 97.6 F 71 16 152/85 H 92 L 10/07/20 03:15 96.8 F L 65 20 173/75 H 94 L 10/07/20 00:55 97.4 F L 83 24 H 144/71 H 92 L 10/07/20 00:20 92 L Weight Weight 256 lb 2.834 oz Most Recent Monitor Data Heart Rate from ECG 87 NIBP 137/85 NIBP BP-Mean 102 Respiration from ECG 20 SpO2 94 I&O: 10/06/20 10/07/20 10/08/20 06:59 06:59 06:59 Intake Total 2550 480 Output Total 3900 2150 Balance -1350 -7410 Result Diagrams: 10/07/20 01:36 10/07/20 01:36 Additional Labs: Accuchecks 10/07/20 10/07/20 10/07/20 10:46 05:33 00:52 POC Glucose 243 H 204 H 211 H 10/06/20 10/06/20 10/05/20 20:35 16:17 12:10 POC Glucose 240 H 217 H 124 H Hospitalist ROS - Medication Medications: Active Medications Generic Name Dose Route Start Last Admin Trade Name Freq PRN Reason Stop Dose Admin Acetaminophen 650 mg 10/04/20 18:45 10/06/20 20:17 Acetaminophen 325 Mg Tab PO 650 mg Q6H PRN Administration Headache/Fever or Pain Albuterol Sulfate 2 puff 10/05/20 15:00 10/07/20 10:34 Albuterol 200 Puff (6.7gm Inhaler) INH 2 puff [id number] MELISSA Administration Enoxaparin Sodium 40 mg 10/05/20 21:00 10/07/20 08:52 Enoxaparin Sodium 40 Mg/0.4 Ml Syringe SC 40 mg 0900,2100 MELISSA Administration Famotidine 20 mg 10/03/20 21:00 10/07/20 08:52 Famotidine 20 Mg Tab PO 20 mg BID MELISSA Administration Guaifenesin/Dextromethorphan 15 ml 10/03/20 15:27 10/03/20 23:43 Guaifenesin Dm 100-10/5 Ml Udcup PO 15 ml Q4H PRN Administration Cough Cefepime HCl 2 gm/ Sodium 100 mls @ 200 mls/hr 10/03/20 18:00 10/07/20 11:40 Chloride IVPB 100 mls 0200,1000,1800 MELISSA Administration Levofloxacin 750 mg/ Device 150 mls @ 100 mls/hr 10/04/20 11:00 10/07/20 11:37 IVPB 150 mls 1100 MELISSA Administration Vancomycin HCl 2 gm/ Sodium 500 mls @ 250 mls/hr 10/04/20 20:00 10/07/20 09:57 Chloride IVPB 500 mls 0800,2000 MELISSA Administration Insulin Human Lispro 0 units 10/03/20 15:27 10/07/20 11:49 Humalog 300 Units/3 Ml Vial SC 3 unit .MILD SLIDING SCALE PRN Administration Mild Correctional Scale Insulin Human Lispro 0 units 10/03/20 15:27 10/06/20 21:24 Humalog 300 Units/3 Ml Vial SC 2 unit .BEDTIME SLIDING SC PRN Administration Bedtime Correctional Scale Losartan Potassium 25 mg 10/07/20 09:00 10/07/20 08:53 Losartan 25 Mg Tab PO 25 mg DAILY MELISSA Administration Methylprednisolone Sodium Succinate 20 mg 10/07/20 12:00 10/07/20 11:37 Methylprednisolone Sod Succ 40 Mg Vial IVP 20 mg Q6HR MELISSA Administration Morphine Sulfate 4 mg 10/04/20 11:27 10/05/20 05:55 Morphine 4 Mg/Ml Vial SLOW IVP 4 mg Q4H PRN Administration Moderate to Severe Pain (6-10) - Exam General Appearance: awake alert Neck: no JVD Heart: RRR, no murmur Respiratory - other findings: bilat posr rales over most of chest Gastrointestinal: soft, non-tender Extremities: no edema Hosp A/P (1) Acute respiratory failure with hypoxia Code(s): J96.01 - ACUTE RESPIRATORY FAILURE WITH HYPOXIA Status: Acute (2) DM2 (diabetes mellitus, type 2) Status: Acute Qualifiers: Diabetes mellitus correction insulin use: with sales donor recruitment representative use Diabetes mellitus complication status: without complication Qualified Code(s): E11.9 - Type 2 diabetes mellitus without complications; Z79.4 - outside operator (current) use of insulin (3) Hypertension Code(s): I10 - ESSENTIAL (PRIMARY) HYPERTENSION Status: Chronic Qualifiers: Hypertension type: essential hypertension Qualified Code(s): I10 - Essential (primary) hypertension (4) Multifocal pneumonia Code(s): J18.9 - PNEUMONIA, UNSPECIFIED ORGANISM Status: Acute - Plan cont current triple antibiotic tx cont O2 supplementation cont accu/ss discuss with pulmonology
[2020-10-07] MEDS: Budesonide 0.5 MG/2 ML NEB NEB SCH (18:28)
[2020-10-07 20:04] LABS: Vancomycin, Trough 28.4 ug/mL
[2020-10-07 20:07] LABS: Anion Gap 17 mmol/L (10-20); Carbon Dioxide 21 mmol/L (22-29); Chloride 102 mmol/L (98-107); Magnesium 1.8 mg/dL (1.6-2.6); Potassium 4.1 mmol/L (3.5-5.1); Sodium 136 mmol/L (136-145)
[2020-10-08] MEDS: methylPREDNISolone Sod Succ 40 MG VIAL IVP SCH ×4 (00:11→17:43)
[2020-10-08] MEDS: Cefepime 2 GM in Sodium Chloride 0.9% 100 ML IVPB SCH ×3 (02:36→17:42)
[2020-10-08 04:30] LABS: #Lymphocytes 0.5 thou/uL (1.20-3.40); #Monocytes 0.4 thou/uL (0.11-0.59); #Neutrophils 4.9 thou/uL (1.40-6.50); %Basophils 0.4 % (0.0-1.0); %Eosinophils 0.3 % (0.0-10.0); %Lymphocytes 8.2 % (21.0-51.0); %Monocytes 6.2 % (0.0-10.0); %Neutrophils 84.9 % (42.0-75.0); Hemoglobin 14.3 g/dL (14.0-18.0); Mean Corpuscular HGB CONC 31.6 g/dL (32.0-36.0); Mean Corpuscular Hemoglobin 30.4 pg (27.0-31.0); Mean Corpuscular Volume 96.3 fL (78.0-98.0); Mean Platelet Volume 7.6 fL (7.4-10.4); Platelet Count 370 thou/uL (130-400); RBC Distribution Width 13.1 % (11.5-14.5); Red Blood Cell (RBC) Count 4.71 mill/uL (4.70-6.10); White Blood Cell (WBC) Count 5.8 thou/uL (4.8-10.8)
[2020-10-08 04:53] LABS: Anion Gap 15 mmol/L (10-20); BUN (Urea Nitrogen) 34 mg/dL (8.4-25.7); Calc. Creatinine Clearance 92 mL/min (70-130); Calcium 7.2 mg/dL (7.8-10.44); Carbon Dioxide 23 mmol/L (22-29); Chloride 105 mmol/L (98-107); Glucose 279 mg/dL (70-105); Potassium 4.4 mmol/L (3.5-5.1); Sodium 139 mmol/L (136-145)
[2020-10-08] MEDS: HumaLOG 300 UNITS/3 ML VIAL SC PRN ×4 (06:04→21:41)
[2020-10-08] MEDS: Albuterol 200 PUFF (6.7GM INHALER) INH SCH ×4 (06:45→19:00)
[2020-10-08] MEDS: Budesonide 0.5 MG/2 ML NEB NEB SCH ×2 (06:46→19:01)
[2020-10-08 07:04] LABS: Troponin I 0.013 ng/mL (< 0.028)
[2020-10-08] MEDS: Losartan 25 MG TAB PO SCH (08:17)
[2020-10-08] MEDS: Famotidine 20 MG TAB PO SCH ×2 (08:18→21:39)
[2020-10-08] MEDS: Enoxaparin Sodium 40 MG/0.4 ML SYRINGE SC SCH ×2 (08:18→21:39)
[2020-10-08] MEDS: Bumetanide 1 MG/4 ML VIAL IVP SCH (08:18)
[2020-10-08] MEDS ORDERED: Vancomycin HCl 1.5 GM in Sodium Chloride 0.9% 250 ML 300 ML IVPB SCH (10:00)
[2020-10-08] MEDS ORDERED: Vancomycin 1.5 GRAM/300 ML BAG 1.5 GM in Premix Bag 1 BAG IVPB SCH (11:00)
--- NOTE | 2020-10-08 11:40 | PDOC.HOSPP ---
- Subjective Encounter Date: 10/08/20 Encounter Time: 11:17 Subjective: only complaint is hiccups at nite - Objective Vital Signs & Weight: Vital Signs (12 hours) Temp Pulse Resp BP Pulse Ox 10/08/20 08:10 97.2 F L 78 18 161/79 H 93 L 10/08/20 06:48 94 L 10/08/20 06:46 64 16 94 L 10/08/20 03:46 97.7 F 60 24 H 168/76 H 93 L 10/07/20 23:54 54 L 154/70 H Weight Weight 251 lb 5.231 oz Most Recent Monitor Data Heart Rate from ECG 87 NIBP 137/85 NIBP BP-Mean 102 Respiration from ECG 20 SpO2 94 I&O: 10/07/20 10/08/20 10/09/20 06:59 06:59 06:59 Intake Total 480 1900 Output Total 2150 4700 Balance -3760 -3326 Result Diagrams: 10/08/20 04:00 10/08/20 04:00 Additional Labs: Accuchecks 10/08/20 10/08/20 10/07/20 10:35 05:57 20:57 POC Glucose 338 H 267 H 297 H 10/07/20 17:19 POC Glucose 290 H Hospitalist ROS - Medication Medications: Active Medications Generic Name Dose Route Start Last Admin Trade Name Freq PRN Reason Stop Dose Admin Acetaminophen 650 mg 10/04/20 18:45 10/06/20 20:17 Acetaminophen 325 Mg Tab PO 650 mg Q6H PRN Administration Headache/Fever or Pain Albuterol Sulfate 2 puff 10/05/20 15:00 10/08/20 10:18 Albuterol 200 Puff (6.7gm Inhaler) INH 2 puff [id number] MELISSA Administration Budesonide 0.5 mg 10/07/20 18:30 10/08/20 06:46 Budesonide 0.5 Mg/2 Ml Neb NEB 0.5 mg BID-RT MELISSA Administration Bumetanide 1 mg 10/08/20 09:00 10/08/20 08:18 Bumetanide 1 Mg/4 Ml Vial IVP 1 mg DAILY MELISSA Administration Enoxaparin Sodium 40 mg 10/05/20 21:00 10/08/20 08:18 Enoxaparin Sodium 40 Mg/0.4 Ml Syringe SC 40 mg 0900,2100 MELISSA Administration Famotidine 20 mg 10/03/20 21:00 10/08/20 08:18 Famotidine 20 Mg Tab PO 20 mg BID MELISSA Administration Guaifenesin/Dextromethorphan 15 ml 10/03/20 15:27 10/03/20 23:43 Guaifenesin Dm 100-10/5 Ml Udcup PO 15 ml Q4H PRN Administration Cough Cefepime HCl 2 gm/ Sodium 100 mls @ 200 mls/hr 10/03/20 18:00 10/08/20 11:00 Chloride IVPB 100 mls 0200,1000,1800 MELISSA Administration Levofloxacin 750 mg/ Device 150 mls @ 100 mls/hr 10/04/20 11:00 10/08/20 11:00 IVPB 150 mls 1100 MELISSA Administration Insulin Human Lispro 0 units 10/03/20 15:27 10/08/20 11:02 Humalog 300 Units/3 Ml Vial SC 5 unit .MILD SLIDING SCALE PRN Administration Mild Correctional Scale Insulin Human Lispro 0 units 10/03/20 15:27 10/07/20 22:13 Humalog 300 Units/3 Ml Vial SC 3 unit .BEDTIME SLIDING SC PRN Administration Bedtime Correctional Scale Losartan Potassium 25 mg 10/07/20 09:00 10/08/20 08:17 Losartan 25 Mg Tab PO 25 mg DAILY MELISSA Administration Methylprednisolone Sodium Succinate 20 mg 10/07/20 12:00 10/08/20 11:01 Methylprednisolone Sod Succ 40 Mg Vial IVP 20 mg Q6HR MELISSA Administration Morphine Sulfate 4 mg 10/04/20 11:27 10/05/20 05:55 Morphine 4 Mg/Ml Vial SLOW IVP 4 mg Q4H PRN Administration Moderate to Severe Pain (6-10) Sodium Chloride 10 ml 10/07/20 21:00 10/08/20 08:18 Flush - Normal Saline 10 Ml Syringe IVF 10 ml Q12HR MELISSA Administration - Exam General Appearance: awake alert Neck: no JVD Heart: RRR, no murmur Respiratory - other findings: rales, coarse BS Gastrointestinal: soft, non-tender, normal bowel sounds Extremities: no edema Hosp A/P (1) Acute respiratory failure with hypoxia Code(s): J96.01 - ACUTE RESPIRATORY FAILURE WITH HYPOXIA Status: Acute (2) DM2 (diabetes mellitus, type 2) Status: Acute Qualifiers: Diabetes mellitus assisted insulin use: with assisted use Diabetes mellitus complication status: without complication Qualified Code(s): E11.9 - Type 2 diabetes mellitus without complications; Z79.4 - group home (current) use of insulin (3) Hypertension Code(s): I10 - ESSENTIAL (PRIMARY) HYPERTENSION Status: Chronic Qualifiers: Hypertension type: essential hypertension Qualified Code(s): I10 - Essential (primary) hypertension (4) Multifocal pneumonia Code(s): J18.9 - PNEUMONIA, UNSPECIFIED ORGANISM Status: Acute - Plan cont current triple antibiotic tx cont O2 supplementation cont accu/ss discuss with pulmonology consult cardiology for AIVR
--- NOTE | 2020-10-08 11:49 | PDOC.BPN ---
- Brief Progress Note Encounter Date: 10/08/20 Encounter Time: 11:48 dX aivr-CARDIOLOGY CONSULT
[2020-10-08] MEDS: Vancomycin 1.5 GRAM/300 ML BAG 1.5 GM in Premix Bag 1 BAG IVPB SCH (12:04)
--- NOTE | 2020-10-08 15:31 | PRG ---
DATE OF SERVICE: 10/08/2020 SUBJECTIVE: The patient remains in the hospital on nasal cannula for viral pneumonia. OBJECTIVE: VITAL SIGNS: Temperature 98.6, pulse 63, respirations 18, O2 saturations 93% on 4 L, blood pressure 166/77. HEENT: Unremarkable. NECK: No adenopathy or JVD. LUNGS: A few inspiratory crackles best heard posteriorly. CARDIAC: S1 and S2. Regular. ABDOMEN: Soft. EXTREMITIES: No edema. LABORATORY DATA: White blood cell count 5.8, hematocrit 45, platelet count 370. Sodium 139, potassium 4.4, chloride 105, CO2 of 23, BUN 34, creatinine 1.5, glucose 379. ASSESSMENT: Viral [id number] by testing. PLAN: Would stop his antibiotics after full 7-day is finished. Would continue the steroids. Dr. Sepulveda plans to repeat his x-ray tomorrow. I will review. Job ID: [id number]
--- NOTE | 2020-10-08 17:25 | CON ---
DATE OF CONSULTATION: PRIMARY STUMP BLOWER: None. REASON FOR CONSULTATION: Bradycardia. HISTORY OF PRESENT ILLNESS: Mr. Farrar is a pleasant 59-year-old gentleman, who was admitted for a viral pneumonia. He recently developed AIVR. After reviewing his strips, it appears the AIVR occurs in the late evening at nighttime. All episodes have occurred while asleep. The patient does admit to snoring. His states he becomes apneic. He has been told in the past he has sleep apnea, but has not been able to tolerate the CPAP. He denies syncope, presyncope, lightheadedness, or dizziness. No chest pain or pressure noted. PAST MEDICAL HISTORY: Diabetes mellitus, hyperlipidemia. MEDICATIONS: Include: 1. Simvastatin. 2. Metformin. 3. Lantus. PAST SURGICAL HISTORY: Back surgery. ALLERGIES: NONE. SOCIAL HISTORY: No current tobacco or alcohol use. REVIEW OF SYSTEMS: A 10-point review of systems is reviewed and is as above, otherwise negative. PHYSICAL EXAMINATION: GENERAL: Patient is a pleasant gentleman who is in no acute distress. The patient appears his stated age. VITAL SIGNS: Blood pressure 166/77, pulse 63, temperature 98.6. NEUROLOGIC: The patient is alert and oriented x3 with no focal neurologic deficits. HEENT: Sclerae without icterus. Mouth has moist mucous membranes with normal pallor. NECK: No JVD. Carotid upstroke brisk. No bruits bilaterally. LUNGS: Clear to auscultation with unlabored respirations. BACK: No scoliosis or kyphosis. CARDIAC: Regular rate and rhythm with normal S1 and S2. No S3 or S4 noted. No significant rubs, murmurs, thrills, or gallops noted throughout the precordium. PMI is not displaced. There is no parasternal heave. ABDOMEN: Soft, nontender, nondistended. No peritoneal signs present. No hepatosplenomegaly. No abnormal striae. EXTREMITIES: 2+ femoral and 2+ dorsalis pedis pulses. No cyanosis, clubbing, or edema. SKIN: No gross abnormalities. PERTINENT LABORATORY DATA: Include hemoglobin of 14.3. Creatinine 1.46, GFR 50. BNP of 139 on admission. BNP was less than 10. IMPRESSION: 1. Accelerated idioventricular rhythm. 2. Obstructive sleep apnea. 3. Viral pneumonia. RECOMMENDATIONS: Mr. Farrar has had bradycardia. After reviewing the chart, it appears to always occur while asleep. He had an episode yesterday at 9:30. He states he fell asleep at 9 o'clock. I would recommend outpatient sleep study. His last sleep study was 5 years ago. I would also consider outpatient 3-week event recorder to assess for any other dysrhythmias. We will set up as an outpatient. Otherwise, I have no further recommendations yet. Job ID: [id number]
--- NOTE | 2020-10-08 18:49 | EKG ---
Test Reason : CP Blood Pressure : / mmHG Vent. Rate : 060 BPM Atrial Rate : 060 BPM P-R Int : 140 ms QRS Dur : 082 ms QT Int : 452 ms P-R-T Axes : 029 034 041 degrees QTc Int : 452 ms Normal sinus rhythm Nonspecific T wave abnormality Cannot rule out Anterior infarct , age undetermined Abnormal ECG Confirmed by DR. Cornelius MARQUEZ MD ([id number]) on 10/08/2020 6:48:54 PM Referred By: AFFRAM Confirmed By:DR. Cornelius MARQUEZ MD
[2020-10-09] MEDS: Cefepime 2 GM in Sodium Chloride 0.9% 100 ML IVPB SCH ×3 (01:47→19:11)
[2020-10-09 05:01] LABS: #Lymphocytes 0.6 thou/uL (1.20-3.40); #Monocytes 0.6 thou/uL (0.11-0.59); #Neutrophils 6.6 thou/uL (1.40-6.50); %Basophils 0.2 % (0.0-1.0); %Eosinophils 0.3 % (0.0-10.0); %Lymphocytes 7.7 % (21.0-51.0); %Monocytes 7.1 % (0.0-10.0); %Neutrophils 84.9 % (42.0-75.0); Mean Corpuscular HGB CONC 33.9 g/dL (32.0-36.0); Mean Corpuscular Hemoglobin 32.5 pg (27.0-31.0); Mean Corpuscular Volume 95.8 fL (78.0-98.0); Mean Platelet Volume 7.6 fL (7.4-10.4); Platelet Count 437 thou/uL (130-400); Red Blood Cell (RBC) Count 4.94 mill/uL (4.70-6.10); White Blood Cell (WBC) Count 7.8 thou/uL (4.8-10.8)
[2020-10-09 05:37] LABS: Anion Gap 16 mmol/L (10-20); BUN (Urea Nitrogen) 39 mg/dL (8.4-25.7); Calc. Creatinine Clearance 89 mL/min (70-130); Calcium 7.4 mg/dL (7.8-10.44); Carbon Dioxide 21 mmol/L (22-29); Chloride 105 mmol/L (98-107); Glucose 310 mg/dL (70-105); Potassium 4.2 mmol/L (3.5-5.1); Sodium 138 mmol/L (136-145)
[2020-10-09] MEDS: methylPREDNISolone Sod Succ 40 MG VIAL IVP SCH ×2 (06:13)
[2020-10-09] MEDS: HumaLOG 300 UNITS/3 ML VIAL SC PRN ×3 (06:13→17:16)
[2020-10-09] MEDS: Budesonide 0.5 MG/2 ML NEB NEB SCH ×2 (06:58→18:57)
[2020-10-09] MEDS: Albuterol 200 PUFF (6.7GM INHALER) INH SCH ×2 (07:00→11:00)
--- NOTE | 2020-10-09 07:53 | RAD ---
Chest 2 views HISTORY: Pneumonia. Follow-up. COMPARISON: 10/06/2020. FINDINGS: Cardiac silhouette and pulmonary vasculature are unremarkable. Mediastinum is midline. Post operative changes lower cervical spine partially visualized. Patchy peripheral bilateral infiltrates involving the right upper and lower lobes and the left upper and lower lobes are again demonstrated. Less pronounced and less dense than on the prior exam. Blunting of the posterior costophrenic angles on the lateral view. No evidence of pneumothorax. IMPRESSION : Significant improvement. Near complete resolution of patchy bilateral infiltrates. Small residual della ateral pleural effusions.
[2020-10-09] MEDS: Enoxaparin Sodium 40 MG/0.4 ML SYRINGE SC SCH ×2 (08:34→21:23)
[2020-10-09] MEDS: Losartan 25 MG TAB PO SCH (08:34)
[2020-10-09] MEDS: Bumetanide 1 MG/4 ML VIAL IVP SCH (08:34)
[2020-10-09] MEDS: Famotidine 20 MG TAB PO SCH ×2 (08:34→21:22)
--- NOTE | 2020-10-09 10:45 | PRG ---
DATE OF SERVICE: 10/09/2020 SUBJECTIVE: The patient is feeling much better. Had no acute complaints. OBJECTIVE: VITAL SIGNS: Temperature 98.4, pulse 83, respirations 18, sat 93% on 4 L, blood pressure 160/76. HEENT: Unremarkable. NECK: No JVD. LUNGS: Few inspiratory crackles bilaterally. CARDIAC: S1, S2. Regular. ABDOMEN: Soft. EXTREMITIES: No edema. LABORATORY DATA: White blood cell count 7.8, hematocrit 47, platelet count 437. Sodium 138, potassium 4.2, chloride 105, CO2 of 21, BUN 39, creatinine 1.5, glucose 310. Chest x-ray looks much improved. ASSESSMENT: Atypical, viral-appearing pneumonia. RECOMMENDATIONS: 1. Stop antibiotics after full 7 days. 2. Can convert over to oral steroids. 3. Push physical therapy and wean oxygen. 4. Can potentially go home by tomorrow on oxygen if all is going well. Job ID: [id number]
[2020-10-09] MEDS ORDERED: HumaLOG 300 UNITS/3 ML VIAL SC PRN (11:42)
--- NOTE | 2020-10-09 11:42 | PDOC.HOSPP ---
- Subjective Encounter Date: 10/09/20 Encounter Time: 11:38 Subjective: feels great - Objective Vital Signs & Weight: Vital Signs (12 hours) Temp Pulse Resp BP BP Pulse Ox 10/09/20 08:15 98.4 F 83 18 160/76 H 93 L 10/09/20 06:58 52 L 16 10/09/20 04:49 97.4 F L 66 15 153/83 H 92 L 10/09/20 00:00 63 146/69 H 92 L Weight Weight 247 lb 2.211 oz Most Recent Monitor Data Heart Rate from ECG 87 NIBP 137/85 NIBP BP-Mean 102 Respiration from ECG 20 SpO2 94 I&O: 10/08/20 10/09/20 10/10/20 06:59 06:59 06:59 Intake Total 1900 3590 Output Total 4700 3000 Balance -2800 590 Result Diagrams: 10/09/20 04:34 10/09/20 04:34 Additional Labs: Accuchecks 10/09/20 10/09/20 10/08/20 10:17 05:41 19:45 POC Glucose 367 H 303 H 331 H 10/08/20 16:46 POC Glucose 367 H Hospitalist ROS - Medication Medications: Active Medications Generic Name Dose Route Start Last Admin Trade Name Freq PRN Reason Stop Dose Admin Acetaminophen 650 mg 10/04/20 18:45 10/06/20 20:17 Acetaminophen 325 Mg Tab PO 650 mg Q6H PRN Administration Headache/Fever or Pain Albuterol Sulfate 2 puff 10/05/20 15:00 10/09/20 11:00 Albuterol 200 Puff (6.7gm Inhaler) INH Not Given [id number] MELISSA Budesonide 0.5 mg 10/07/20 18:30 10/09/20 06:58 Budesonide 0.5 Mg/2 Ml Neb NEB 0.5 mg BID-RT MELISSA Administration Bumetanide 1 mg 10/08/20 09:00 10/09/20 08:34 Bumetanide 1 Mg/4 Ml Vial IVP 1 mg DAILY MELISSA Administration Enoxaparin Sodium 40 mg 10/05/20 21:00 10/09/20 08:34 Enoxaparin Sodium 40 Mg/0.4 Ml Syringe SC 40 mg 0900,2100 MELISSA Administration Famotidine 20 mg 10/03/20 21:00 10/09/20 08:34 Famotidine 20 Mg Tab PO 20 mg BID MELISSA Administration Guaifenesin/Dextromethorphan 15 ml 10/03/20 15:27 10/03/20 23:43 Guaifenesin Dm 100-10/5 Ml Udcup PO 15 ml Q4H PRN Administration Cough Hydralazine HCl 10 mg 10/03/20 15:27 10/08/20 21:57 Hydralazine 20 Mg/Ml Vial SLOW IVP 10 mg Q4H PRN Administration SBP > 180 and HR < 70 Cefepime HCl 2 gm/ Sodium 100 mls @ 200 mls/hr 10/03/20 18:00 10/09/20 08:35 Chloride IVPB 100 mls 0200,1000,1800 MELISSA Administration Levofloxacin 750 mg/ Device 150 mls @ 100 mls/hr 10/04/20 11:00 10/09/20 11:15 IVPB 150 mls 1100 MELISSA Administration Vancomycin HCl 1.5 gm/ Device 300 mls @ 200 mls/hr 10/08/20 12:00 10/09/20 00:00 IVPB 300 mls 1200,2359 MELISSA Administration Insulin Human Lispro 0 units 10/03/20 15:27 10/09/20 06:13 Humalog 300 Units/3 Ml Vial SC 5 unit .MILD SLIDING SCALE PRN Administration Mild Correctional Scale Insulin Human Lispro 0 units 10/03/20 15:27 10/08/20 21:41 Humalog 300 Units/3 Ml Vial SC 4 unit .BEDTIME SLIDING SC PRN Administration Bedtime Correctional Scale Losartan Potassium 25 mg 10/07/20 09:00 10/09/20 08:34 Losartan 25 Mg Tab PO 25 mg DAILY MELISAS Administration Morphine Sulfate 4 mg 10/04/20 11:27 10/05/20 05:55 Morphine 4 Mg/Ml Vial SLOW IVP 4 mg Q4H PRN Administration Moderate to Severe Pain (6-10) Sodium Chloride 10 ml 10/07/20 21:00 10/09/20 08:35 Flush - Normal Saline 10 Ml Syringe IVF 10 ml Q12HR MELISSA Administration - Exam General Appearance: awake alert Neck: no JVD Heart: RRR, no murmur Respiratory: CTAB Gastrointestinal: soft, normal bowel sounds Extremities: no edema Hosp A/P (1) Acute respiratory failure with hypoxia Code(s): J96.01 - ACUTE RESPIRATORY FAILURE WITH HYPOXIA Status: Acute (2) DM2 (diabetes mellitus, type 2) Status: Acute Qualifiers: Diabetes mellitus terminal operator insulin use: with terminal operator use Diabetes mellitus complication status: without complication Qualified Code(s): E11.9 - Type 2 diabetes mellitus without complications; Z79.4 - alf (current) use of insulin (3) Hypertension Code(s): I10 - ESSENTIAL (PRIMARY) HYPERTENSION Status: Chronic Qualifiers: Hypertension type: essential hypertension Qualified Code(s): I10 - Essential (primary) hypertension (4) Multifocal pneumonia Code(s): J18.9 - PNEUMONIA, UNSPECIFIED ORGANISM Status: Acute (5) AIVR (accelerated idioventricular rhythm) Code(s): I44.2 - ATRIOVENTRICULAR BLOCK, COMPLETE Status: Acute - Plan cont current triple antibiotic tx for 7 total days, then DC cont O2 supplementation, deescalate as possible cont accu, increase insulin coverage needs outpatient 3 week event recorder per cardiology needs sleep study post DC for JODI
[2020-10-09] MEDS: Vancomycin 1.5 GRAM/300 ML BAG 1.5 GM in Premix Bag 1 BAG IVPB SCH ×2 (12:20)
--- NOTE | 2020-10-09 14:03 | PRG ---
DATE OF SERVICE: 10/09/2020 SUBJECTIVE: Mr. Farrar is doing well. No current complaints. His shortness of breath is slowly improving. OBJECTIVE: VITAL SIGNS: Blood pressure 160/76, pulse 83, temperature 98.4. LUNGS: Mild rhonchi and rales bilaterally. HEART: Regular rate and rhythm. ABDOMEN: Soft, nontender, nondistended. EXTREMITIES: No edema. DIAGNOSTIC DATA: Telemetry monitoring, 1 episode of accelerated intraventricular rhythm. IMPRESSION: 1. Dysrhythmia. 2. Viral pneumonia. RECOMMENDATIONS: Mr. Farrar most likely has undiagnosed obstructive sleep apnea. This is likely causing his current dysrhythmia. At this point, the patient will need outpatient testing. We would recommend an outpatient EVR for confirmation. We would recommend outpatient sleep study. Otherwise, I have no further recommendations symptoms from any significant episodes of bradycardia, we will follow up as an outpatient. Job ID: [id number]
[2020-10-09] MEDS: predniSONE 20 MG TAB PO SCH (21:23)
[2020-10-09 23:25] LABS: Vancomycin, Trough 23.5 ug/mL
[2020-10-10] MEDS: Vancomycin HCl 1.25 GM in Sodium Chloride 0.9% 250 ML 250 ML IVPB SCH ×2 (00:43→13:01)
[2020-10-10] MEDS: Cefepime 2 GM in Sodium Chloride 0.9% 100 ML IVPB SCH ×2 (02:30→09:51)
[2020-10-10 05:00] LABS: #Eosinphils 0.1 thou/uL (0.0-0.7); #Lymphocytes 0.9 thou/uL (1.20-3.40); #Monocytes 0.8 thou/uL (0.11-0.59); #Neutrophils 8.3 thou/uL (1.40-6.50); %Basophils 0.2 % (0.0-1.0); %Eosinophils 1.2 % (0.0-10.0); %Lymphocytes 8.8 % (21.0-51.0); %Monocytes 8.1 % (0.0-10.0); %Neutrophils 81.7 % (42.0-75.0); Hemoglobin 14.6 g/dL (14.0-18.0); Mean Corpuscular HGB CONC 34.4 g/dL (32.0-36.0); Mean Corpuscular Hemoglobin 32.8 pg (27.0-31.0); Mean Corpuscular Volume 95.3 fL (78.0-98.0); Mean Platelet Volume 7.3 fL (7.4-10.4); Platelet Count 410 thou/uL (130-400); RBC Distribution Width 12.8 % (11.5-14.5); Red Blood Cell (RBC) Count 4.45 mill/uL (4.70-6.10); White Blood Cell (WBC) Count 10.2 thou/uL (4.8-10.8)
[2020-10-10 05:24] LABS: Anion Gap 16 mmol/L (10-20); BUN (Urea Nitrogen) 41 mg/dL (8.4-25.7); Calc. Creatinine Clearance 86 mL/min (70-130); Calcium 7.1 mg/dL (7.8-10.44); Carbon Dioxide 20 mmol/L (22-29); Chloride 105 mmol/L (98-107); Glucose 371 mg/dL (70-105); Sodium 137 mmol/L (136-145)
[2020-10-10] MEDS: HumaLOG 300 UNITS/3 ML VIAL SC PRN ×2 (06:05→11:23)
[2020-10-10] MEDS: Budesonide 0.5 MG/2 ML NEB NEB SCH (07:05)
[2020-10-10 07:19] VITALS: TEMP 97.5
[2020-10-10] MEDS: Enoxaparin Sodium 40 MG/0.4 ML SYRINGE SC SCH (09:45)
[2020-10-10] MEDS: Losartan 25 MG TAB PO SCH (09:45)
[2020-10-10] MEDS: Famotidine 20 MG TAB PO SCH (09:45)
[2020-10-10] MEDS: predniSONE 20 MG TAB PO SCH (09:45)
[2020-10-10] MEDS: Bumetanide 1 MG/4 ML VIAL IVP SCH (09:47)
[2020-10-10 12:12] VITALS: BP 172/81
--- NOTE | 2020-10-10 13:29 | PRG ---
DATE OF SERVICE: 10/10/2020 SUBJECTIVE: Feels much better, is walking in the [place] with physical therapy. OBJECTIVE: VITAL SIGNS: Temperature 97.5, pulse 100, respirations 17, O2 sat 94% on 3 L, blood pressure 172/81. HEENT: Unremarkable. NECK: No JVD. CHEST: Fairly clear anteriorly. ABDOMEN: Soft and nontender. EXTREMITIES: No edema. LABORATORY DATA: White blood cell count 10.2, hematocrit 42.4, and platelet count 410. Sodium 137, potassium 4, BUN 41, creatinine 1.4, and glucose 371. ASSESSMENT: Viral pneumonia, organism not known. RECOMMENDATIONS: I think he is safe to go home. I would discharge him on Levaquin, complete 10 total days of Levaquin. I do not think the cefepime and vancomycin will be necessary. I would taper his steroids over about 2 weeks. He will need home oxygen at 3 L nasal cannula, but length a week or two. He should follow up with me in 3-4 weeks. Job ID: [id number]
--- NOTE | 2020-10-11 08:16 | PDOC.DS.DS ---
Provider - Provider Date of Admission: 10/03/20 12:17 Date of Discharge: 10/10/20 Admitting Provider: Christ Calderon DO Consultations: Cardiology, Pulmonary Primary Care Physician: Adam Marshall MD Course - Hospital Course Hospital Course: this patient is a 60-year-old male who had a history of about 2 weeks of cough, shortness of breath, headache and fever. He had 3 negative Covid test prior to admission. On admission the patient appeared to have multifocal infiltrates. He had a negative Covid test performed at the hospital. He subsequently had antibodies performed which were also negative. At that point it was felt confidently that he did not have this. He was seen in consultation by pulmonary. He was covered with broad-spectrum antibiotics and initially some steroids as well. He also appeared to respond significantly to some diuresis. He had some bradycardia which appeared to be an idioventricular rhythm based on cardiology evaluation. It appeared to occur while the patient was asleep and felt to be related to some previously undiagnosed obstructive sleep apnea. Patient was encouraged to follow-up for testing after discharge. The patient's oxygen improved significantly and he was down to a reasonable level that he could manage at home he was felt to be stable for discharge. Patient reported he had an oxygen concentrator at home which would be able to provide him the 3 L that he was requiring quite adequately. He was fully prepared and eager to go home. He was felt to be appropriate for discharge by pulmonology with by mouth antibiotics and slow steroid taper. Resuscitation Status: 10/03/20 13:55 Resuscitation Status Routine Resuscitation Status: FULL: Full Resuscitation - Labs Lab Results: 10/10/20 04:24 10/10/20 04:24 Abnormal Lab Results - Last 48 hrs 10/10/20 04:24: Carbon Dioxide 20 L, BUN 41 H, Creatinine 1.48 H, Calcium 7.1 L 10/10/20 04:24: RBC 4.45 L, MCH 32.8 H, Plt Count 410 H, MPV 7.3 L, Neutrophils % 81.7 H, Lymphocytes % 8.8 L, Neutrophils # 8.3 H, Lymphocytes # 0.9 L, Monocytes # 0.8 H Microbiology - Entire Visit 10/05/20 09:52 Venous blood - Right Hand Blood Culture - Final NO GROWTH IN 5 DAYS 10/05/20 09:52 Venous blood - Left Hand Blood Culture - Final NO GROWTH IN 5 DAYS 10/03/20 10:18 Venous blood - Right Arm Blood Culture - Final NO GROWTH IN 5 DAYS 10/03/20 10:18 Venous blood - Left Arm Blood Culture - Final NO GROWTH IN 5 DAYS - Physical Exam Vitals: Weight Weight 246 lb 4.101 oz Most Recent Monitor Data Heart Rate from ECG 87 NIBP 137/85 NIBP BP-Mean 102 Respiration from ECG 20 SpO2 94 Physical Exam: The patient was seen and examined on the day of discharge. Problem - Problem (1) AIVR (accelerated idioventricular rhythm) Code(s): I44.2 - ATRIOVENTRICULAR BLOCK, COMPLETE Status: Acute (2) Acute respiratory failure with hypoxia Code(s): J96.01 - ACUTE RESPIRATORY FAILURE WITH HYPOXIA Status: Acute (3) Chronic back pain Code(s): M54.9 - DORSALGIA, UNSPECIFIED; G89.29 - OTHER CHRONIC PAIN Status: Acute (4) DM2 (diabetes mellitus, type 2) Status: Acute Qualifiers: Diabetes mellitus [employer] insulin use: with [employer] use Diabetes mellitus complication status: without complication Qualified Code(s): E11.9 - Type 2 diabetes mellitus without complications; Z79.4 - jail (current) use of insulin (5) Multifocal pneumonia Code(s): J18.9 - PNEUMONIA, UNSPECIFIED ORGANISM Status: Acute (6) Sepsis Code(s): A41.9 - SEPSIS, UNSPECIFIED ORGANISM Status: Acute (7) Hypertension Code(s): I10 - ESSENTIAL (PRIMARY) HYPERTENSION Status: Chronic Qualifiers: Hypertension type: essential hypertension Qualified Code(s): I10 - Essential (primary) hypertension Plan - Discharge Medications Prescriptions: Losartan [Cozaar] 25 mg PO DAILY #30 tab Levofloxacin [Levaquin] 500 mg PO DAILY #7 tab predniSONE 10 mg PO TID-WM #30 tab Home Medications: Medication Instructions Recorded Confirmed Type Aspirin [Ecotrin Low Strength] 81 mg PO DAILY 01/21/17 10/03/20 History Glyburide/Metformin HCl 2 tablet PO QAM-WM 01/21/17 10/03/20 History [glyBURIDE/metFORMIN] Simvastatin [Zocor] 40 mg PO HS 01/21/17 10/03/20 History Insulin Glargine [Lantus] 50 units IM BID 10/03/20 10/03/20 History Olmesartan [Benicar] 2 tab PO DAILY 10/04/20 10/04/20 History Levofloxacin [Levaquin] 500 mg PO DAILY #7 tab 10/10/20 Rx Losartan [Cozaar] 25 mg PO DAILY #30 tab 10/10/20 Rx predniSONE 10 mg PO TID-WM #30 tab 10/10/20 Rx Allergies: No Known Allergies Allergy (Verified 01/07/20 08:36) - Discharge Instructions Discharge Instructions:: FOCUS: Transition from Acute Care after Discharge GOAL: Successful transition to care in the community YOUR TASKS: (1) review all information outlined in your discharge packet (2) follow any instructions outlined in your discharge packet (3) contact your primary care provider if you have questions or need additional assistance See patient discharge instruction sheet for detailed teaching. Patient verbalizes understanding of medications and is able to verbalize follow-up care. See Discharge Plan for additional discharge information. Patient secured in private vehicle prior to departure. Increase Lantus to 60 units bid and taper back down as the Prednisone is tapered. Stay hydrated. Activity:: Activity as Tolerated Nourishment:: Diabetic Diet - Follow up Plan Referrals: Adam Marshall MD [Primary Care Provider] - 7 Days (Please call your Dr. Marshall's office within 7 days to set up a follow up appointment. Make sure to bring your discharge paperwork. Dr. Sepulveda strongly recommends setting up an o utpatient sleep study to test for sleep apnea.) Herb Irene MD [Active] - 14 Days (Please call Dr. Irene's office within 14 days to set up a follow up appointment. Dr. Irene would like to evaluate you for the use of a 3 week event monitor for your heart rhythm.) Carlos Green MD [Active] - 3-4 Weeks (Please call Dr. Green's office within 3-4 weeks to set up a follow up appointment. ) Disposition: HOME Quality - Care Measures CORE MEASURES:: PNE
== END 2020-10-10 15:59 | disposition home or self-care (01) | DRG 871 ==
LOC: ERS 09:16 → ERHOLD 12:17 → SURG B 17:05 → 2NO 10-04 19:58 → IMCU/EMU 10-05 14:07 → 2NO 10-06 16:58
PROVIDERS: ADMIT Family Medicine; ATTEND Internal Medicine
DX: A41.9 Sepsis, unspecified organism (principal); J96.01 Acute respiratory failure with hypoxia; Z20.828 Contact with and (suspected) exposure to other viral communicable diseases; J12.9 Viral pneumonia, unspecified; I44.2 Atrioventricular block, complete; E11.649 Type 2 diabetes mellitus with hypoglycemia without coma; G43.909 Migraine, unspecified, not intractable, without status migrainosus; E78.5 Hyperlipidemia, unspecified; I10 Essential (primary) hypertension; G89.29 Other chronic pain; G47.33 Obstructive sleep apnea (adult) (pediatric); Z79.4 Long term (current) use of insulin; Z79.899 Other long term (current) drug therapy
CPT/HCPCS: 0240U; 36415; 36416; 71045; 71046; 71275; 80048; 80053; 80202; 83605; 83735; 83880; 84484; 85025; 86769; 87040; 93005; 93010; 93306; 94640; 94760; 96365; 96366; 96367; 96375; J0360; J0692; J1100; J1650; J1885; J1956; J2270; J2920; J3370; J3475; J3490; J7030; J7050; J7512; J7620; J7626; Q9967

== ENCOUNTER 2020-11-12 10:25 | Outpatient (CLI) | payer OTHER ==
--- NOTE | 2020-11-12 10:45 | RAD ---
EXAM: Chest PA and lateral: HISTORY: Dyspnea COMPARISON: 10/09/2020 FINDINGS: Heart: Normal cardiac silhouette Aorta: Unremarkable Pulmonary vessels: Normal Costophrenic angles: Costophrenic angles are clear. Lungs: No consolidation or masses. Pneumothorax: No pneumothorax Osseous structures: No osseous abnormalities IMPRESSION: No acute cardiopulmonary process.
== END 2020-11-12 10:26 | disposition home or self-care (01) ==
LOC: BICRAD 10:25
PROVIDERS: ATTEND Internal Medicine Critical Care Medicine
DX: R06.00 Dyspnea, unspecified (principal)
CPT/HCPCS: 71046

== ENCOUNTER 2020-12-30 14:36 | Outpatient (CLI) | payer OTHER | END 2020-12-30 14:37 | disposition home or self-care (01) | LOC: TBSIIMAG 14:36 | PROVIDERS: ATTEND Neurological Surgery | DX: M47.12 Other spondylosis with myelopathy, cervical region (principal); M50.01 Cervical disc disorder with myelopathy, high cervical region; Z98.1 Arthrodesis status | CPT/HCPCS: 72040; 72141 ==

== ENCOUNTER 2023-05-27 13:40 | Outpatient (CLI) | payer BC, OTHER ==
[2023-05-27] MEDS ORDERED: Magnevist 469MG/ML 20 ML VIAL ONE (13:47)
== END 2023-05-27 13:41 | disposition home or self-care (01) ==
LOC: BICMRI 13:40
PROVIDERS: ATTEND Internal Medicine Gastroenterology
DX: K86.89 Other specified diseases of pancreas (principal); K52.9 Noninfective gastroenteritis and colitis, unspecified; R63.4 Abnormal weight loss
CPT/HCPCS: 74183; 82565; A9579

== ENCOUNTER 2024-02-28 08:10 | Outpatient (CLI) | payer BC, OTHER ==
[2024-02-28 09:20] LABS: Hematocrit 47.1 % (38.8-50.0); Hemoglobin 16.4 g/dL (13.5-17.5); Mean Corpuscular HGB CONC 34.8 g/dL (32.0-36.0); Mean Corpuscular Hemoglobin 32.6 pg (27.0-33.0); Mean Corpuscular Volume 93.6 fl (81.2-95.1); Platelet Count 153 10x3/uL (150-450); Red Blood Cell (RBC) Count 5.03 10x6/uL (4.32-5.72); White Blood Cell (WBC) Count 2.2 10x3/uL (3.5-10.5)
[2024-02-28 09:28] LABS: Anion Gap 13 mmol/L (10-20); BUN (Urea Nitrogen) 13 mg/dL (8.4-25.7); Calc. Creatinine Clearance 0 mL/min (70-130); Calcium 9.2 mg/dL (7.8-10.44); Carbon Dioxide 28 mmol/L (23-31); Chloride 102 mmol/L (98-107); Estimated GFR 60; Glucose 260 mg/dL (80-115); Potassium 4.8 mmol/L (3.5-5.1); Sodium 138 mmol/L (136-145)
[2024-02-28 09:38] LABS: MDiff Complete? YES
[2024-02-28 11:57] LABS: Eosinophils 5 % (0-10)
[2024-02-28 11:59] LABS: Lymphocytes 58 % (21-51); Monocytes 21 % (0-10); Neutrophil 16 % (42-75)
[2024-02-28 12:01] LABS: Platelet Adequacy Comment Appears Adequate; RBC Morph Comment Within Normal Limits
== END 2024-02-28 08:11 | disposition home or self-care (01) ==
LOC: LABBT 08:10
PROVIDERS: ATTEND Orthopaedic Surgery
DX: Z01.818 Encounter for other preprocedural examination (principal); M75.122 Complete rotator cuff tear or rupture of left shoulder, not specified as traumatic
CPT/HCPCS: 80048; 85025; 93005; 93010

== ENCOUNTER 2024-03-09 08:55 | Day surgery (SDC) | payer BC, OTHER ==
[2024-02-28 08:45] VITALS: BMI 27.8
[2024-03-09] MEDS ORDERED: fentaNYL 50 mcg/mL 1 mL Vial ONE (11:13)
[2024-03-09] MEDS ORDERED: Midazolam HCl 2 mg/2 ml Vial ONE ×2 (11:13→12:21)
[2024-03-09] MEDS ORDERED: Ropivacaine 0.5% HCl/PF (150 MG/30 ML VIAL) ONE (11:14)
[2024-03-09] MEDS ORDERED: Acetaminophen 500 MG TAB ONE (11:20)
[2024-03-09] MEDS ORDERED: CEFAZOLIN 2 GM VIAL ONE (12:19)
[2024-03-09] MEDS ORDERED: PROPOFOL 20 ML ONE (12:20)
[2024-03-09] MEDS ORDERED: Sodium Chloride 0.9% 100 ML ONE (12:20)
[2024-03-09] MEDS ORDERED: Lidocaine 1% PF 5 ML VIAL ONE (12:28)
[2024-03-09] MEDS ORDERED: Ondansetron PF 4 MG/2 ML Vial ONE (12:28)
[2024-03-09] MEDS ORDERED: Ketorolac Tromethamine 30 MG (1 mL) VIAL ONE (12:28)
[2024-03-09] MEDS ORDERED: Dexamethasone 4 mg/ml Vial ONE (12:28)
[2024-03-09] MEDS ORDERED: Rocuronium Bromide 10 MG/ML (10ML VIAL) ONE (12:28)
[2024-03-09] MEDS ORDERED: EPINEPHrine 1 MG/ML VIAL ONE (13:00)
[2024-03-09] MEDS ORDERED: Bupivacaine 0.25% HCL 30 ML VIAL ONE (13:00)
[2024-03-09] MEDS ORDERED: ePHEDrine Sulfate 50 MG/10 ML VIAL ONE (13:08)
[2024-03-09] MEDS ORDERED: fentaNYL 50 mcg/mL 1 mL Vial SLOW IVP PRN (13:12)
[2024-03-09] MEDS ORDERED: traMADol HCl 50 MG TAB PO PRN ×2 (13:15)
[2024-03-09] MEDS ORDERED: HYDROcodone/Acetaminophen 5/325 mg Tablet PO PRN ×2 (13:15)
[2024-03-09] MEDS ORDERED: Ondansetron PF 4 MG/2 ML Vial IVP PRN (13:15)
[2024-03-09] MEDS ORDERED: Promethazine HCl 25 MG/ML VIAL IM PRN (13:15)
[2024-03-09] MEDS ORDERED: Ropivacaine 0.2% 550 ML 550 ML NERVE BLCK SCH (13:15)
[2024-03-09] MEDS ORDERED: Zolpidem Tartrate 5 MG TAB PO PRN (13:15)
[2024-03-09] MEDS ORDERED: NEOSTIGMINE 3 MG/3 ML SYR 3 MG/3 ML SYRINGE ONE (13:50)
[2024-03-09] MEDS ORDERED: Glycopyrrolate 0.2 MG/ML 5 ML SYRINGE ONE ×2 (13:50)
== END 2024-03-09 15:53 | disposition home or self-care (01) ==
LOC: SDC 08:55
PROVIDERS: ATTEND Orthopaedic Surgery
PROC: 0LU247Z Supplement Left Shoulder Tendon with Autologous Tissue Substitute, Percutaneous Endoscopic Approach (ICD-10-PCS; principal; 2024-03-09)
DX: M75.122 Complete rotator cuff tear or rupture of left shoulder, not specified as traumatic (principal); E11.9 Type 2 diabetes mellitus without complications; E78.5 Hyperlipidemia, unspecified; I11.0 Hypertensive heart disease with heart failure; I50.9 Heart failure, unspecified; Z98.890 Other specified postprocedural states; Z79.899 Other long term (current) drug therapy; Z79.85 Long-term (current) use of injectable non-insulin antidiabetic drugs
CPT/HCPCS: A4306; C1713; J0171; J0665; J1100; J1885; J2250; J2405; J2704; J2795; J3010; J3490